=== PATIENT | male | born 1995 | race Two or more races ===

== ENCOUNTER 2020-05-21 18:13 | Emergency (ER) | payer OTHER ==
[2020-05-21 18:25] VITALS: BP 150/74
--- NOTE | 2020-05-21 20:06 | ER Document Report ---
ED Medical Screen (RME) - General Chief Complaint: Laceration Stated Complaint: LACERATION/LEFT PINKY FINGER Time Seen by Provider: 05/21/20 19:55 Mode of Arrival: Ambulatory Information source: Patient Notes: 24-year-old male presented to ED for laceration to the left fifth finger. He states he was at work when trying to cut a piece of pipe with a knife when he sliced his left knuckle. He states it is to the bone. He states his last tetanus immunization was in 2015. He states he had buck third-degree to the right arm and flank with surgery for the buck. He denies any other past m edical history. He is alert oriented respirations regular nonlabored speaking in full sentences. Bleeding was controlled until I removed the dressing at which time it did start bleeding again and I have redressed the wound. We will get x-rays of the hand and treat patient with Tylenol. I have greeted and performed a rapid initial assessment of this patient. A comprehensive ED assessment and evaluation of the patient, analysis of test results and completion of medical decision making process will be conducted by an additional ED providers. TRAVEL OUTSIDE OF THE [place] IN LAST 30 DAYS: No - Related Data Allergies/Adverse Reactions: No Known Allergies Allergy (Verified 07/16/15 13:08) Past Medical History - Immunizations Hx Diphtheria, Pertussis, Tetanus Vaccination: No Physical Exam - Vital signs Vitals: Temp Pulse Resp BP Pulse Ox 98.2 F 76 16 150/74 H 100 05/21/20 18:24 05/21/20 18:24 05/21/20 18:24 05/21/20 18:24 05/21/20 18:24 Course - Vital Signs Vital signs: Temp Pulse Resp BP Pulse Ox 98.2 F 76 16 150/74 H 100 05/21/20 18:24 05/21/20 18:24 05/21/20 18:24 05/21/20 18:24 05/21/20 18:24
[2020-05-21] MEDS ORDERED: ACETAMINOPHEN 325 MG TABLET PO ONE (20:07)
[2020-05-21] MEDS ORDERED: LIDOCAINE 1% INJ-PF (10 MG/ML) 30 ML SDV INJ ONE (20:47)
--- NOTE | 2020-05-21 20:49 | RADIOLOGY REPORT (SQ) ---
EXAM DESCRIPTION: X-ray, three views of the left hand and fifth finger. CLINICAL HISTORY: 24 years Male, Laceration left fifth finger COMPARISON: None. FINDINGS: A dressing is in place at the fifth finger which secures fine detail. Alignment of the finger is anatomic. Bone mineralization is normal. No fracture. No radiopaque foreign body is identified. Soft tissue swelling. IMPRESSION: Soft tissue injury. No radiopaque foreign body or fracture.
--- NOTE | 2020-05-21 20:54 | ER Document Report ---
ED Wound - General Chief Complaint: Laceration Stated Complaint: LACERATION/LEFT PINKY FINGER Time Seen by Provider: 05/21/20 19:55 Mode of Arrival: Ambulatory Notes: CHIEF COMPLAINT: Left fourth finger laceration HPI: 24-year-old male who is up-to-date on his tetanus vaccination presenting for a laceration to the left fifth finger on a piece of pipe at work today. Denies numbness or tingling in the fingertip. States he can fully flex and extend the finger. ROS: See HPI - all other systems were reviewed and are otherwise negative Constitutional: no fever Integumentary: + Laceration Allergy: no hives Musculoskeletal: + extremity pain or swelling Neurological: no numbness/tingling, no weakness MEDICATIONS: I agree with the patient medications as charted by the RN. ALLERGIES: I agree with the allergies as charted by the RN. PAST MEDICAL HISTORY/PAST SURGICAL HISTORY: Reviewed and agree as charted by RN. SOCIAL HISTORY: Reviewed and agree as charted by RN. FAMILY HISTORY: No significant familial comorbid conditions directly related to patient complaint EXAM: Reviewed vital signs as charted by RN. CONSTITUTIONAL: Alert and oriented and responds appropriately to questions. Well-appearing; well-nourished HEAD: Normocephalic; atraumatic EYES: Conjunctivae clear, sclerae non-icteric ENT: normal nose; no rhinorrhea; moist mucous membranes NECK: Supple without meningismus CARD: symmetric distal pulses RESP: Normal chest excursion without splinting or tachypnea ABD/GI: non-distended BACK: The back appears normal EXT: Normal ROM in all joints; no cyanosis, no effusions, no edema SKIN: Normal color for age and race; warm; dry; good turgor; 1 cm slightly stellate laceration over the PIP joint space region of the left fifth finger on the dorsal aspect. Full flexion extension of the finger is noted. No visible tendon injury. NEURO: Moves all extremities equally; Motor and sensory function intact PSYCH: The patient's mood and manner are appropriate. Grooming and personal hygiene are appropriate. MDM: 24-year-old male with a laceration over the PIP region of the left fourth finger. We will plan to clean and close the wound area TRAVEL OUTSIDE OF THE [place] IN LAST 30 DAYS: No - Related Data Allergies/Adverse Reactions: No Known Allergies Allergy (Verified 07/16/15 13:08) Home Medications: denies Past Medical History - General Information source: Patient - Social History Smoking Status: Never Smoker Chew tobacco use (# tins/day): No Frequency of alcohol use: Rare Drug Abuse: None Family History: Reviewed & Not Pertinent Patient has homicidal ideation: No - Immunizations Hx Diphtheria, Pertussis, Tetanus Vaccination: No Physical Exam - Vital signs Vitals: Temp Pulse Resp BP Pulse Ox 98.2 F 76 16 150/74 H 100 05/21/20 18:24 05/21/20 18:24 05/21/20 18:24 05/21/20 18:24 05/21/20 18:24 Course - Vital Signs Vital signs: Temp Pulse Resp BP Pulse Ox 98.2 F 76 16 150/74 H 100 05/21/20 18:24 05/21/20 18:24 05/21/20 18:24 05/21/20 18:24 05/21/20 18:24 Procedures - Immobilization Left Finger 5th digit Time completed: 21:29 Pre-Proc Neuro Vasc Exam: Normal Immobilizer type: Finger splint (Static) Performed by: RN Post-Proc Neuro Vasc Exam: Normal, Unchanged from pre-exam Alignment checked and good: Yes - Laceration/Wound Repair Left Dorsal Finger 5th digit Time completed: 21:28 Wound length (cm): 1 Wound's Depth, Shape: Superficial, Irregular, Contused tissue Laceration pre-procedure: Sterile PPE donned, Sterile drapes applied, Other - saline Volume Anesthetic (mLs): 1 Wound explored: Clean Irrigated w/ Saline (mLs): 250 Wound Repaired With: Sutures Suture Size/Type: 5:0, Prolene Number of Sutures: 3 Layer Closure?: No Post-procedure wound care: Sterile dressing applied, Splint applied Post-procedure NV exam normal: Yes Complications: No Discharge - Discharge Clinical Impression: Laceration of finger, left Qualifiers: Encounter type: initial encounter Finger: little finger Damage to nail status: without damage Foreign body presence: without foreign body Qualified Code(s): S61.217A - Laceration without foreign body of left little finger without damage to nail, initial encounter Condition: Stable Disposition: HOME, SELF-CARE Instructions: Laceration Care ([facility]) Additional Instructions: Sutures out in 10 days. Motrin or Tylenol for pain. Use the finger splint for the next 3 to 5 days to help protect the wound area. Change the dressing daily, washing the area gently with soap and water applying a small amount of antibiotic ointment and a dressing until healed. Return for any concerns for infection such as swelling drainage or discharge
== END 2020-05-21 21:42 | disposition home or self-care (01) ==
LOC: ER 18:13
DX: S61.217A Laceration without foreign body of left little finger without damage to nail, initial encounter (principal); W45.8XXA Other foreign body or object entering through skin, initial encounter; Y93.89 Activity, other specified; Y99.0 Civilian activity done for income or pay
CPT/HCPCS: 99283; 73140; 12001; J3490